=== PATIENT | male | born 1955 | race African-American/Black ===

== ENCOUNTER 2017-10-24 14:47 | Emergency (ER) | payer MEDICARE, MEDICAID ==
[2017-10-24 15:02] VITALS: BP 113/78
--- NOTE | 2017-10-24 16:35 | UC ---
Back Pain HPI - HPI Summary HPI Summary: patient lives in supportive [facility] and is non verbal but is able to makes needs known has an advocate with him from his correction. 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 Onset/Duration: Sudden Onset, Lasting Hours, Still Present, Worse Since - sitting down Timing: Constant Severity Initially: Moderate Severity Currently: Moderate Back Pain: Is Discrete @ Character: Aching, Spasmodic, Stiffness Aggravating Factor(s): Movement Alleviating Factor(s): Heat Associated Signs And Symptoms: Positive: Negative - Allergies/Home Medications Allergies/Adverse Reactions: Allergies Allergy/AdvReac Type Severity Reaction Status Date / Time No Known Allergies Allergy Verified 10/24/17 14:58 Home Medications: Home Medications Triamterene/HCTZ 37.5-25 MG* [Dyazide CAP*] 1 cap PO DAILY 10/24/17 [History Confirmed 10/24/17] PMH/Surg Hx/FS Hx/Imm Hx Previously Healthy: No - congenital issues with mouth Cardiovascular History: Hypertension - Surgical History Surgical History: Yes Surgery Procedure, Year, and Place: SEVERAL SURGERIES IN THE [facility] - Family History Known Family History: Positive: None - Social History Occupation: Employed Full-time Lives: Assisted Living Alcohol Use: None Substance Use Type: None Smoking Status (MU): Never Smoked Tobacco Review of Systems Constitutional: Negative Skin: Negative Eyes: Negative ENT: Negative Respiratory: Negative Cardiovascular: Negative Gastrointestinal: Negative Genitourinary: Negative Motor: Negative Neurovascular: Negative Musculoskeletal: Arthralgia - low back pain that radiates across lumbar area, Myalgia Neurological: Negative Psychological: Negative Is Patient Immunocompromised?: No All Other Systems Reviewed And Are Negative: Yes Physical Exam Triage Information Reviewed: Yes Appearance: Well-Appearing, No Pain Distress, Thin Vital Signs: Initial Vital Signs Temp 98 F 10/24/17 14:59 Pulse 65 10/24/17 14:59 Resp 16 10/24/17 14:59 BP 113/78 10/24/17 14:59 Pulse Ox 100 10/24/17 14:59 Vital Signs Reviewed: Yes Eye Exam: Normal Eyes: Positive: Conjunctiva Clear ENT Exam: Normal ENT: Positive: Normal ENT inspection, Hearing grossly normal, Pharynx normal. Negative: Nasal congestion, Nasal drainage, Trismus Dental Exam: Normal - for patient Neck exam: Normal Neck: Positive: Supple, Nontender Respiratory Exam: Normal Respiratory: Positive: Chest non-tender, No respiratory distress, No accessory muscle use Cardiovascular Exam: Normal Cardiovascular: Positive: RRR, Pulses Normal, Brisk Capillary Refill Musculoskeletal Exam: Normal Musculoskeletal: Positive: ROM Limited @ - low back Neurological Exam: Normal Psychological Exam: Normal Skin Exam: Normal Back Pain Course/Dx - Course Course Of Treatment: motrin, flexeril, pt, rest heat follow with pcp - Differential Dx/Diagnosis Provider Diagnoses: Acute low back strain Discharge - Discharge Plan Condition: Stable Disposition: HOME Prescriptions: Cyclobenzaprine TAB* [Flexeril 10 MG TAB*] 10 mg PO BID PRN #10 tab PRN Reason: muscle spasm Ibuprofen TAB* [Motrin TAB* 600 MG] 600 mg PO Q6H PRN #30 tab PRN Reason: Pain Patient Education Materials: Low Back Strain (ED), Muscle Spasm (ED), Core Strengthening Exercises (GEN), Lower Back Exercises (ED) Forms: *School Release Referrals: Erica Webb MD [Primary Care Provider] - 4 Days
== END 2017-10-24 16:55 | disposition home or self-care (01) ==
LOC: UCEAST 14:47
DX: S39.012A Strain of muscle, fascia and tendon of lower back, initial encounter (principal); X50.1XXA Overexertion from prolonged static or awkward postures, initial encounter; Y92.048 Other place in boarding-house as the place of occurrence of the external cause; I10 Essential (primary) hypertension
CPT/HCPCS: 99211; G0463

== ENCOUNTER 2020-01-22 12:41 | Emergency (ER) | payer MEDICARE, MEDICAID ==
--- OUTSIDE RECORDS SUMMARY | 2020-01-22 13:07 | XMS REPORT | Summary of Care ---
:1955 Author Organization [facility] Address [address] [facility] [place] [address] Care Team Providers Name Role Phone Erica Webb MD Primary Care Provider Reason for Visit Reason Comments Weight Loss Has lost 5 lbs since last visit 09/2018 and wants to gain it back. 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 Encounter Details Date Type Department Care Team Description 11/27/2019 Office Visit [facility], Deja, Infantile cerebral palsy (HCC) (Primary Dx); Medicine RD Essential hypertension, benign; [address] Weight loss, [place] [address] [place] [address] [phone] Allergies No Known Allergiesdocumented as of this encounter (statuses as of 11/27/2019) Medications Medication Sig Dispensed Refills Start Date End Date Status hydrochlorothiazide (HCTZ, Take 25 mg by 0 Active ORETIC) 25 MG Oral Tab mouth DAILY. triamterene-hydrochlorothia Take 1 Cap by 0 Active zide (DYAZIDE) 37.5-25 MG mouth DAILY. Oral Cap documented as of this encounter (statuses as of 11/27/2019) Active Problems Problem Noted Date Graves disease 12/20/2015 Infantile cerebral palsy 10/09/2013 Overview: Hernando Webb MD. In nutrition referral. Essential hypertension, benign 10/09/2013 Overview: Hernando Webb MD. documented as of this encounter (statuses as of 11/27/2019) Social History Tobacco Use Types Packs/Day Years Used Date Never Smoker Alcohol Use Drinks/Week oz/Week Comments Yes 0-1 Standard drinks or equivalent 0.0 - 0.8 Sex Assigned at Date Recorded Not on file Job Start Date Occupation Industry Not on file Not on file Not on file Travel History Travel Start Travel End No recent travel history available. documented as of this encounter Last Filed Vital Signs Vital Sign Reading Time Taken Comments Blood Pressure - - Pulse - - Temperature - - Respiratory Rate - - Oxygen Saturation - - Inhaled Oxygen Concentration - - Weight 62.1 kg (137 lb) 11/27/2019 9:09 AM EST Height 170.2 cm (5' 7") 11/27/2019 9:09 AM EST Body Mass Index 21.46 11/27/2019 9:09 AM EST documented in this encounter Patient Instructions Patient InstructionsDeja Terrell, SOLO - 11/27/2019 8:30 AM ESTFollow high calorie, high protein, reduced sodium diet. Include at least 5 fruits and vegetables daily. V-8 Splash or low sodium V-8 daily. Look for banana pouch to keep banana in for lunch. 2-3 cans of Ensure plus or Boost Plus or similar product daily and Protein bars for snacks - blueberry Luis Miguel or Yenni bar or other soft bars or Complete protein cookies. Take tuna/chicken/egg salad or low sodium ham or Just turkey and cheese sandwich or homemade frozen meals with you to work with fruit/applesauce and juice or gatorade. Drink soda once a week and have Ensure Plus, milk, juice or V-8 or V-8 splash - look for juice boxesor put in thermos/bottleor gatorade. Chooselow sodiumcreamy soupsor pastas with sauce. Have unprocessed meats, starch and fresh or frozen vegetable or no added salt canned vegetables for dinner. Have scrambled eggs with milk and cheese or quichewith vegetables or egg muffins with vegetablesand cheeseand grits or oatmeal with whole milk and brown sugar or maple syrup and applesauce or bananafor breakfast. No more than 3-4 hours between meals and snacks.Have dinner every night or have a protein bar orEnsure. Make batch mealsand Freeze and microwave later - use Day Hab recipes. Cook on the weekends - fish - salmon or microwavable fish wedges or shrimp, tuna or chicken noodle casserole with low sodium soup or bake meatloaf. Rotisserie chicken or cooked food at [facility]. Try to have evening snack or Boost Plus if haven't had 2 for the day yet. Shopping - Look for lower sodium entrees when grocery shopping - Healthy Choice Steamer frozen meals. Low sodium ham at [employer] in packages. Healthier lower sodium frozen pastas, brown rice with vegetable frozen steamers. Buy bananas, grapes and berries and frozen vegetables. Make fish fordinner 1-2 times a week. Have chicken salad when you order a sub sandwich. Have leftovers before bowling night or take Ensure Plus with you. Fried chicken less often. Have honduran yogurt more often and bring in lunch. Weight goal: gain 1-2 lbs per month to reach 145 lbs. 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 Follow up visit in 4 months.Electronically signed by Deja Terrell RD at 10:33 AM EST documented in this encounter Progress Notes Deja Terrell RD - 11/27/2019 8:30 AM EST PATIENT: Dyllan Hansen : 1955 DATE OF SERVICE: 11/27/2019 REFERRING PRACTITIONER: Erica Webb PRIMARY CARE PROVIDER: Erica Webb CHIEF COMPLAINT: Chief Complaint Patient presents with Weight Loss Has lost 5 lbs since last visit 09/2018 and wants to gain it back. 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 SUBJECTIVE: Dyllan is a 64-y.o. male who presents with [facility] for [facility]. Last seen: 10/03/18, weight was 142 lbs, today it is 137 lbs. Other Voiced Concerns: Has no bottom teeth currently so hard to chew some foods. OUTCOME MEASURES FROM LAST APPOINTMENT: Patient has stopped skipping meals most of the time. Sometimes has vending machine snacks in place of healthy snacks or meals. Patient has not improved portions of foods. Has lost 5 lbs over the past year, so needs to increase portions or add in extra snacks and continue with Ensure Plus daily. EXERCISE HABITS: Bowling twice a week and snow shoeing once a week. 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 Factors that affect exercise habits include: Does different sports throughout the year, but keeps very active. CONTRIBUTING FACTORS: Co morbidities: As listed in history History reviewed. No pertinent past medical history. History reviewed. No pertinent surgical history. Social History Socioeconomic History Marital status: Single Spouse name: Not on file Number of children: Not on file Years of education: Not on file Highest education level: Not on file Occupational History Not on file Social Needs Financial resource strain: Not on file Food insecurity Worry: Not on file Inability: Not on file Transportation needs Medical: Not on file Non-medical: Not on file Tobacco Use Smoking status: Never Smoker Substance and Sexual Activity Alcohol use: Yes Alcohol/week: 0.0 - 0.8 standard drinks Drug use: No Sexual activity: Not on file Lifestyle Physical activity Days per week: Not on file Minutes per session: Not on file Stress: Not on file Relationships Social connections Talks on phone: Not on file Gets together: Not on file Attends methodist service: Not on file Active member of club or organization: Not on file Attends meetings of clubs or organizations: Not on file Relationship status: Not on file Intimate partner violence Fear of current or ex partner: Not on file Emotionally abused: Not on file Physically abused: Not on file Forced sexual activity: Not on file Other Topics Concern Not on file Social History Narrative Not on file History reviewed. No pertinent family history. No Known Allergies Current Outpatient Medications Medication Sig hydrochlorothiazide (HCTZ, ORETIC) 25 MG Oral Tab Take 25 mg by mouth DAILY. triamterene-hydrochlorothiazide (DYAZIDE) 37.5-25 MG Oral Cap Take 1 Cap by mouth DAILY. No current facility-administered medications for this visit. VITALS: Ht 5' 7" (1.702 m) Wt 137 lb (62.1 kg) BMI 21.46 kg/m2 Wt Readings from Last 10 Encounters: 11/27/19 137 lb (62.1 kg) 10/03/18 142 lb (64.4 kg) 05/30/18 146 lb (66.2 kg) 02/14/18 137 lb (62.1 kg) 10/11/17 138 lb (62.6 kg) 05/24/17 138 lb (62.6 kg) 01/18/17 136 lb (61.7 kg) 09/14/16 135 lb (61.2 kg) 05/18/16 134 lb (60.8 kg) 02/24/16 129 lb (58.5 kg) IMPRESSION: Dyllan has been eating fairly well overall, but not enough calories to maintain desired weight. He has lost 9 lbs in the past year and a half and wants to gain weight back. 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 He was taking Ensure Plus 3 times per day, but is now having it twice a day. Patient is motivated to continueto increase portions to balance calories expended from exercise to help him gain weight to reach 145lbs. Patient Instructions Follow high calorie, high protein, reduced sodium diet. Include at least 5 fruits and vegetables daily. V-8 Splash or low sodium V-8 daily. Look for banana pouch to keep banana in for lunch. 2-3 cans of Ensure plus or Boost Plus or similar product daily and Protein bars for snacks - blueberry Luis Miguel or Yenni bar or other soft bars or Complete protein cookies. Take tuna/chicken/egg salad or low sodium ham or Just turkey and cheese sandwich or homemade frozen meals with you to work with fruit/applesauce and juice or gatorade. Drink soda once a week and have Ensure Plus, milk, juice or V-8 or V-8 splash - look for juice boxesor put in thermos/bottleor gatorade. Chooselow sodiumcreamy soupsor pastas with sauce. Have unprocessed meats, starch and fresh or frozen vegetable or no added salt canned vegetables for dinner. Have scrambled eggs with milk and cheese or quichewith vegetables or egg muffins with vegetablesand cheeseand grits or oatmeal with whole milk and brown sugar or maple syrup and applesauce or bananafor breakfast. No more than 3-4 hours between meals and snacks.Have dinner every night or have a protein bar orEnsure. Make batch mealsand Freeze and microwave later - use Day Hab recipes. Cook on the weekends - fish - salmon or microwavable fish wedges or shrimp, tuna or chicken noodle casserole with low sodium soup or bake meatloaf. Rotisserie chicken or cooked food at [facility] Try to have evening snack or Boost Plus if haven't had 2 for the day yet. Shopping - Look for lower sodium entrees when grocery shopping - Healthy Choice Steamer frozen meals. Low sodium ham at [employer] in packages. Healthier lower sodium frozen pastas, brown rice with vegetable frozen steamers. Buy bananas, grapes and berries and frozen vegetables. Make fish fordinner 1-2 times a week. Have chicken salad when you order a sub sandwich. Have leftovers before bowling night or take Ensure Plus with you. Fried chicken less often. Have honduran yogurt more often and bring in lunch. Weight goal: gain 1-2 lbs per month to reach 145 lbs. 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 Follow up visit in 4 months. TIME: Time spent with the patient today, 45 minutes. 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 He has no bottom teeth since he is having issues with his dentures, so somewhat restricted with foods he can eat. He likes salty foods like hot dogs and ham, but limits portion and frequency. Author: Deja Terrell MPH, RD, CDN, CDE 11/27/2019, 10:33 documented in this encounter Plan of Treatment Date Type Specialty Care Team Description 03/25/2020 Office Visit Internal Medicine Deja Terrell RD [address] [place] [address] [phone] Name Type Priority Associated Diagnoses Order Schedule MNT FOLLOW UP EACH 15 Procedures Routine Infantile cerebral palsy Ordered: 11/27/2019 MINS (HCC) Health Maintenance Due Date Last Done Comments MEDICARE ANNUAL WELLNESS VISIT 1955 DTaP/Tdap/Td Vaccines (1 - Tdap) 1967 DEPRESSION SCREENING 1968 LIPID DISORDER SCREENING 1974 Colonoscopy 2006 ZOSTER IMMUNIZATION SERIES (1 of 2) 2006 INFLUENZA VACCINE (#1) 2019 HEPATITIS A IMMUNIZATION SERIES Aged Out No longer eligible based on patient's age to complete this topic HPV IMMUNIZATION SERIES Aged Out No longer eligible based on patient's age to complete this topic MENINGOCOCCAL VACCINE IMM Aged Out No longer eligible based on patient's age to complete this topic PNEUMOCOCCAL 0-64 YRS Aged Out No longer eligible based on patient's age to complete this topic documented as of this encounter Results Not on filedocumented in this encounter Visit Diagnoses Diagnosis Infantile cerebral palsy (HCC) Infantile cerebral palsy, unspecified Essential hypertension, benign Weight loss, unintentional Loss of weight documented in this encounter Insurance Payer Benefit Plan / Subscriber ID Effective Dates Phone Address Type Group MEDICARE MEDICARE PART A xxxxxxxxxx 1980-Present Medicare & B MEDICAID [facility] xxxxxxxx 2017-Present Medicaid [place] (Home) [id number] [place], [place] (Work) [id number] documented as of this encounter
--- NOTE | 2020-01-22 14:44 | ED ---
Respiratory - HPI Summary HPI Summary: 64-year-old male presents with cough for three past week. He has not been outside his house in a while. He has not been in contact with anyone. He does have aides that check on him occasionally but they have not been sick and are not contact with anyone who is sick. He hasn't had any fevers. Cough has been dry. Cough is intermittent. Denies any shortness breath. No sore throat. No sinus congestion. Has been eating normal. No abd pain. No nausea vomiting. Denies any history asthma or COPD. Is nonsmoker. - History of Current Complaint Chief Complaint: EDUpperRespComplaint Stated Complaint: COUGH/WHEEZE PER STAFF Time Seen by Provider: 01/22/20 14:32 Pain Intensity: 0 - Allergy/Home Medications Allergies/Adverse Reactions: Allergies Allergy/AdvReac Type Severity Reaction Status Date / Time No Known Allergies Allergy Verified 10/24/17 14:58 Home Medications: Home Medications Hypromellose [Systane Gel] 0.3 % BOTH EYES BEDTIME 06/23/19 [History Confirmed 06/23/19] Propranolol HCl [Propranolol HCl ER] 60 mg PO DAILY 06/23/19 [History Confirmed 06/23/19] Triamterene/HCTZ 37.5-25 MG* [Dyazide CAP*] 1 cap PO DAILY #0 06/24/19 [Rx Confirmed 06/23/19] guaiFENesin 100 mg/5 ml LIQ [Robitussin 100 mg/5ml LIQ] 5 mg PO Q6H PRN #1 udc 01/22/20 [Rx] PMH/Surg Hx/FS Hx/Imm Hx Endocrine/Hematology History: Denies: Hx Diabetes Cardiovascular History: Reports: Hx Hypertension - MILD History: Reports: Other Problems/Disorders - LEFT SPERMATOCELE Denies: Hx Renal Disease Musculoskeletal History: Reports: Other Musculoskeletal History - CEREBRAL PALSY Sensory History: Reports: Hx Contacts or Glasses - GLASSES Denies: Hx Hearing Aid Opthamlomology History: Reports: Hx Contacts or Glasses - GLASSES Neurological History: Reports: Hx Seizures - HX OF - NO MEDICATION - NO SEIZURE SINCE , Other Neuro Impairments/Disorders - CEREBRAL PALSY, NON-VERBAL - Surgical History Surgery Procedure, Year, and Place: SEVERAL SURGERIES IN THE [facility] [place] Hx Anesthesia Reactions: No Infectious Disease History: No Infectious Disease History: Denies: Hx Clostridium Difficile, Hx Hepatitis, Hx Human Immunodeficiency Virus (HIV), Hx of Known/Suspected MRSA, Hx Shingles, Hx Tuberculosis, Hx Known/ Suspected VRE, Hx Known/Suspected VRSA, History Other Infectious Disease, Traveled Outside the [place] in Last 30 Days - Family History Known Family History: Positive: None, Unknown - patient does not know his FMHx - Social History Alcohol Use: None Substance Use Type: Reports: None Smoking Status (MU): Never Smoked Tobacco Review of Systems Negative: Fever Negative: Chest Pain Positive: Cough. Negative: Shortness Of Breath All Other Systems Reviewed And Are Negative: Yes Physical Exam Triage Information Reviewed: Yes Vital Signs On Initial Exam: Initial Vitals Temp Pulse Resp BP Pulse Ox 98.6 F 66 16 129/83 100 01/22/20 12:48 01/22/20 12:48 01/22/20 12:48 01/22/20 12:48 01/22/20 12:48 Vital Signs Reviewed: Yes Appearance: Positive: Well-Appearing Skin: Positive: Warm, Dry Head/Face: Positive: Normal Head/Face Inspection Eyes: Positive: Normal, EOMI, RALPH, Conjunctiva Clear ENT: Positive: Pharynx normal Respiratory/Lung Sounds: Positive: Clear to Auscultation, Breath Sounds Present Cardiovascular: Positive: Normal, RRR Abdomen Description: Positive: Nontender, Soft Bowel Sounds: Positive: Present Musculoskeletal: Positive: Normal Neurological: Positive: Normal Psychiatric: Positive: Normal Procedures - Sedation Patient Received Moderate/Deep Sedation with Procedure: No Diagnostics - Vital Signs Vital Signs Temp Pulse Resp BP Pulse Ox 01/22/20 12:48 98.6 F 66 16 129/83 100 - Laboratory Lab Statement: Any lab studies that have been ordered have been reviewed, and results considered in the medical decision making process. Disposition - Course Course Of Treatment: 64-year-old male presents with cough for three past week. He has not been outside his house in a while. He has not been in contact with anyone. He does have aides that check on him occasionally but they have not been sick and are not contact with anyone who is sick. He hasn't had any fevers. Cough has been dry. Cough is intermittent. Denies any shortness breath. No sore throat. No sinus congestion. Has been eating normal. No abd pain. No nausea vomiting. Denies any history asthma or COPD. Is nonsmoker. On exam lungs clear to auscultation. Pharynx normal. As has no sick contacts and has been isolating himself is a low risk for covid so will not test this time. vitals stable. will give cough medication. told to continue selt isolating. patient understand and agrees with plan. - Differential Dx - Cardiopulmonary Differential Diagnoses - Cardiopulmonary: Bronchitis, Influenza, Lower Resp Infection - Diagnoses Provider Diagnoses: Cough Discharge ED - Sign-Out/Discharge Documenting (check all that apply): Patient Departure - Discharge Plan Condition: Good Disposition: HOME Prescriptions: guaiFENesin 100 mg/5 ml LIQ [Robitussin 100 mg/5ml LIQ] 5 mg PO Q6H PRN #1 udc PRN Reason: Cough Patient Education Materials: Acute Cough (ED) Referrals: Erica Webb MD [Primary Care Provider] - Additional Instructions: take robitussin every 6 hours for cough Follow up with primary within 5 days Return to ED if develop any new or worsening symptoms - Billing Disposition and Condition Condition: GOOD Disposition: Home - Attestation Statements Provider Attestation: I was available for consultation for this patient. I did not evaluate the patient or participate in any medical decision making or disposition decisions unless I am specifically named in the chart as having consulted on the patient. If I have consulted on the patient, please see my own ED note on the patient encounter. Christ Elizabeth MD
[2020-01-22 15:06] VITALS: BP 115/76
== END 2020-01-22 15:01 | disposition home or self-care (01) ==
LOC: ED 12:41
DX: R05 Cough (principal); I10 Essential (primary) hypertension; G80.9 Cerebral palsy, unspecified; Z79.899 Other long term (current) drug therapy
CPT/HCPCS: 99281